=== PATIENT | female | born 1970 | race African-American/Black ===

== ENCOUNTER 2017-01-28 10:16 | Inpatient (IN) ==
[2017-01-28 11:11] LABS: Basophils % 0.3 % (0.0-0.8); Eosinophils # 0.1 10*3/uL (0.0-0.87); Eosinophils % 1.1 % (0.00-10.9); Hematocrit 32.8 VOL% (35.7-47.0); Hemoglobin 10.7 GM/DL (12.0-16.0); Immature Granulocytes % 0.5 %; Immature Granulocytes Absolute 0.06 #; Lymphocytes # 1.8 10*3/uL (1.4-4.0); Lymphocytes % 16.4 % (21.3-54.2); Mean Corpuscular HGB Conc 32.6 GM/DL (32-36); Mean Corpuscular Hemoglobin 28 PG (27-34); Mean Corpuscular Volume 85.6 FL (87-102); Mean Platelet Volume 11.3 FL (9.6-12.0); Monocytes # 0.7 10*3/uL (0.11-0.8); Monocytes % 6.3 % (1.7-12.7); Neutrophils # 8.4 10*3/uL (1.4-7.4); Neutrophils % 75.4 % (38.7-73.9); Platelet Count 233 T/CUMM (130-400); Red Blood Count 3.83 MC/CUMM (3.8-5.5); Red Cell Distribution Width 15.1 % (9.3-17.3); White Blood Count 11.2 T/CUMM (4-12)
[2017-01-28 11:33] LABS: Calcium 8.6 MG/DL (8.5-10.1); Osmolality,Calculated 274.1 MOS/KG (273-304); Potassium 3.8 MMOL/L (3.5-5.1)
[2017-01-28] MEDS ORDERED: BUPIVACAINE 0.25% 50 ML VIAL ONE (12:24)
[2017-01-28] MEDS ORDERED: PROPOFOL 200 MG/20 ML VIAL IV ONE (13:43)
[2017-01-28] MEDS ORDERED: KETAMINE 500 MG/10 ML VIAL ONE (13:44)
[2017-01-28] MEDS ORDERED: MIDAZOLAM 2 MG/2 ML VIAL ONE (13:44)
[2017-01-28] MEDS ORDERED: fentaNYL 100 MCG/2 ML VIAL ONE (13:44)
[2017-01-28] MEDS ORDERED: GLUCAGON 1 MG VIAL IM PRN (15:05)
[2017-01-28] MEDS ORDERED: ACETAMINOPHEN 325 MG TABLET PO PRN (15:05)
[2017-01-28] MEDS ORDERED: CLINDAMYCIN INJ 600 MG in PREMIX 1 EACH IV ONE (15:05)
[2017-01-28] MEDS ORDERED: DEXTROSE 50% 25 GM/50 ML VIAL IV PRN (15:05)
[2017-01-28 15:49] LABS: Apearance,Urine Slightly Hazy (Clear); Bilirubin,Urine Negative (Negative); Blood, Urine Large mg/dL (Negative); Glucose,Urine (UA) 50 mg/dL (Negative); Ketones,Urine Negative (Negative); Mucus,Urine Occasional /LPF (Occasional); Nitrite,Urine Negative (Negative); Protein,Urine Negative; RBC,Urine 4 /HPF (0-4); Squamous Epithelial Cell,Urine Occasional /HPF (0-10); Urine Color Yellow (Yellow); Urine Specific Gravity 1.006 (1.001-1.035); Urine Urobilinogen < 2.0 EU/DL (0.2-1.0); WBC,Urine 10 /HPF (0-6)
[2017-01-28] MEDS ORDERED: INFLUENZA VIRUS VACCINE 0.5 ML SYRINGE IM ONE (15:52)
[2017-01-28] MEDS: ALBUTEROL/IPRATROPIUM 3 ML NEB RESP TX SCH ×2 (16:30→19:53)
[2017-01-28] MEDS: ONDANSETRON 4 MG/2 ML VIAL IV PRN (17:45)
[2017-01-28] MEDS: MORPHINE 2 MG/1 ML SYRINGE IV PRN (17:45)
[2017-01-28] MEDS: INSULIN REGULAR 100 UNIT/ML SUBCUT SCH ×2 (17:45→20:12)
[2017-01-28] MEDS: INSULIN GLARGINE 100 UNIT/ML SUBCUT SCH (20:13)
[2017-01-28] MEDS: PANTOPRAZOLE 40 MG TABLET PO SCH (20:16)
[2017-01-28] MEDS: GABAPENTIN 300 MG CAPSULE PO SCH (20:16)
[2017-01-29] MEDS: CLINDAMYCIN INJ 600 MG in PREMIX 1 EACH IV SCH ×4 (00:23→23:12)
[2017-01-29] MEDS: ALBUTEROL/IPRATROPIUM 3 ML NEB RESP TX SCH ×4 (00:29→19:57)
[2017-01-29 06:21] LABS: Basophils % 0.3 % (0.0-0.8); Eosinophils # 0.2 10*3/uL (0.0-0.87); Eosinophils % 1.4 % (0.00-10.9); Hematocrit 30.2 VOL% (35.7-47.0); Hemoglobin 9.6 GM/DL (12.0-16.0); Immature Granulocytes % 0.5 %; Immature Granulocytes Absolute 0.05 #; Lymphocytes # 2.3 10*3/uL (1.4-4.0); Lymphocytes % 21.1 % (21.3-54.2); Mean Corpuscular HGB Conc 31.8 GM/DL (32-36); Mean Corpuscular Hemoglobin 27 PG (27-34); Mean Platelet Volume 11.4 FL (9.6-12.0); Monocytes # 0.8 10*3/uL (0.11-0.8); Monocytes % 7.5 % (1.7-12.7); Neutrophils # 7.5 10*3/uL (1.4-7.4); Neutrophils % 69.2 % (38.7-73.9); Platelet Count 237 T/CUMM (130-400); Red Blood Count 3.51 MC/CUMM (3.8-5.5); Red Cell Distribution Width 15.1 % (9.3-17.3); White Blood Count 10.9 T/CUMM (4-12)
[2017-01-29] MEDS: INSULIN REGULAR 100 UNIT/ML SUBCUT SCH ×4 (09:30→20:48)
[2017-01-29] MEDS: GABAPENTIN 300 MG CAPSULE PO SCH ×2 (09:31→20:47)
[2017-01-29] MEDS: LISINOPRIL/HCTZ 20-12.5 MG TABLET PO SCH (09:31)
[2017-01-29] MEDS: FERROUS SULFATE 325 MG TABLET PO SCH (09:31)
[2017-01-29] MEDS: VERAPAMIL SR 240 MG TABLET PO SCH (09:32)
[2017-01-29] MEDS: PANTOPRAZOLE 40 MG TABLET PO SCH ×2 (09:32→20:47)
[2017-01-29] MEDS: LIRAGLUTIDE 18 MG SUBCUT SCH (09:32)
[2017-01-29] MEDS: CIPROFLOXACIN INJ 400 MG in PREMIX 1 EACH IV SCH ×2 (09:33→20:46)
[2017-01-29] MEDS: MORPHINE 2 MG/1 ML SYRINGE IV PRN (09:54)
[2017-01-29] MEDS: SODIUM HYPOCHLORITE 0.25% IRRIG 473 ML BOTTLE TOP SCH (11:53)
[2017-01-29] MEDS: INSULIN GLARGINE 100 UNIT/ML SUBCUT SCH (20:48)
[2017-01-30] MEDS: ALBUTEROL/IPRATROPIUM 3 ML NEB RESP TX SCH ×4 (02:00→19:34)
[2017-01-30] MEDS: CLINDAMYCIN INJ 600 MG in PREMIX 1 EACH IV SCH ×3 (07:47→23:25)
[2017-01-30] MEDS: FERROUS SULFATE 325 MG TABLET PO SCH (09:06)
[2017-01-30] MEDS: LISINOPRIL/HCTZ 20-12.5 MG TABLET PO SCH (09:06)
[2017-01-30] MEDS: VERAPAMIL SR 240 MG TABLET PO SCH (09:06)
[2017-01-30] MEDS: PANTOPRAZOLE 40 MG TABLET PO SCH ×2 (09:07→20:22)
[2017-01-30] MEDS: GABAPENTIN 300 MG CAPSULE PO SCH ×2 (09:07→20:22)
[2017-01-30] MEDS: CIPROFLOXACIN INJ 400 MG in PREMIX 1 EACH IV SCH ×2 (09:08→20:22)
[2017-01-30] MEDS: INSULIN REGULAR 100 UNIT/ML SUBCUT SCH ×4 (09:09→20:23)
[2017-01-30] MEDS: LIRAGLUTIDE 18 MG SUBCUT SCH (09:16)
[2017-01-30] MEDS: SODIUM HYPOCHLORITE 0.25% IRRIG 473 ML BOTTLE TOP SCH (11:04)
[2017-01-30] MEDS: INSULIN GLARGINE 100 UNIT/ML SUBCUT SCH (20:23)
[2017-01-31] MEDS: ALBUTEROL/IPRATROPIUM 3 ML NEB RESP TX SCH ×4 (01:34→19:58)
[2017-01-31] MEDS: CLINDAMYCIN INJ 600 MG in PREMIX 1 EACH IV SCH ×3 (09:09→23:22)
[2017-01-31] MEDS: INSULIN REGULAR 100 UNIT/ML SUBCUT SCH ×4 (09:16→20:39)
[2017-01-31] MEDS: PANTOPRAZOLE 40 MG TABLET PO SCH ×2 (09:17→20:39)
[2017-01-31] MEDS: GABAPENTIN 300 MG CAPSULE PO SCH ×2 (09:17→20:39)
[2017-01-31] MEDS: LISINOPRIL/HCTZ 20-12.5 MG TABLET PO SCH (09:17)
[2017-01-31] MEDS: FERROUS SULFATE 325 MG TABLET PO SCH (09:17)
[2017-01-31] MEDS: VERAPAMIL SR 240 MG TABLET PO SCH (09:18)
[2017-01-31] MEDS: LIRAGLUTIDE 18 MG SUBCUT SCH (09:18)
[2017-01-31] MEDS: CIPROFLOXACIN INJ 400 MG in PREMIX 1 EACH IV SCH ×2 (10:05→20:40)
[2017-01-31] MEDS: MORPHINE 2 MG/1 ML SYRINGE IV PRN (10:11)
[2017-01-31] MEDS: ONDANSETRON 4 MG/2 ML VIAL IV PRN (10:15)
[2017-01-31] MEDS: SODIUM HYPOCHLORITE 0.25% IRRIG 473 ML BOTTLE TOP SCH (15:02)
[2017-01-31] MEDS: INSULIN GLARGINE 100 UNIT/ML SUBCUT SCH (20:39)
[2017-02-01] MEDS: ALBUTEROL/IPRATROPIUM 3 ML NEB RESP TX SCH ×4 (00:42→19:33)
[2017-02-01] MEDS: INSULIN REGULAR 100 UNIT/ML SUBCUT SCH ×4 (08:44→23:06)
[2017-02-01] MEDS: CLINDAMYCIN INJ 600 MG in PREMIX 1 EACH IV SCH ×2 (08:44→16:22)
[2017-02-01] MEDS: PANTOPRAZOLE 40 MG TABLET PO SCH ×2 (08:46→23:05)
[2017-02-01] MEDS: GABAPENTIN 300 MG CAPSULE PO SCH ×2 (08:46→23:05)
[2017-02-01] MEDS: FERROUS SULFATE 325 MG TABLET PO SCH (08:46)
[2017-02-01] MEDS: VERAPAMIL SR 240 MG TABLET PO SCH (08:47)
[2017-02-01] MEDS: LISINOPRIL/HCTZ 20-12.5 MG TABLET PO SCH ×2 (08:48→16:16)
[2017-02-01] MEDS: MORPHINE 2 MG/1 ML SYRINGE IV PRN (09:08)
[2017-02-01] MEDS: LIRAGLUTIDE 18 MG SUBCUT SCH (09:33)
[2017-02-01] MEDS: CIPROFLOXACIN INJ 400 MG in PREMIX 1 EACH IV SCH ×2 (09:33→23:11)
[2017-02-01] MEDS: SODIUM HYPOCHLORITE 0.25% IRRIG 473 ML BOTTLE TOP SCH (15:30)
[2017-02-01] MEDS: INSULIN GLARGINE 100 UNIT/ML SUBCUT SCH (23:05)
[2017-02-02] MEDS: ALBUTEROL/IPRATROPIUM 3 ML NEB RESP TX SCH ×4 (00:35→19:32)
[2017-02-02] MEDS: CLINDAMYCIN INJ 600 MG in PREMIX 1 EACH IV SCH ×4 (01:08→23:23)
[2017-02-02] MEDS: INSULIN REGULAR 100 UNIT/ML SUBCUT SCH ×4 (08:34→21:23)
[2017-02-02] MEDS: FERROUS SULFATE 325 MG TABLET PO SCH (08:37)
[2017-02-02] MEDS: LISINOPRIL/HCTZ 20-12.5 MG TABLET PO SCH (08:37)
[2017-02-02] MEDS: PANTOPRAZOLE 40 MG TABLET PO SCH ×2 (08:38→21:22)
[2017-02-02] MEDS: GABAPENTIN 300 MG CAPSULE PO SCH ×2 (08:38→21:22)
[2017-02-02] MEDS: VERAPAMIL SR 240 MG TABLET PO SCH (08:38)
[2017-02-02] MEDS: CIPROFLOXACIN INJ 400 MG in PREMIX 1 EACH IV SCH ×2 (09:09→21:20)
[2017-02-02] MEDS: LIRAGLUTIDE 18 MG SUBCUT SCH (09:14)
[2017-02-02] MEDS: SODIUM HYPOCHLORITE 0.25% IRRIG 473 ML BOTTLE TOP SCH (11:15)
[2017-02-02] MEDS: INSULIN GLARGINE 100 UNIT/ML SUBCUT SCH (21:23)
[2017-02-03] MEDS: ALBUTEROL/IPRATROPIUM 3 ML NEB RESP TX SCH ×3 (01:18→12:57)
[2017-02-03] MEDS: LISINOPRIL/HCTZ 20-12.5 MG TABLET PO SCH (08:18)
[2017-02-03] MEDS: VERAPAMIL SR 240 MG TABLET PO SCH (08:19)
[2017-02-03] MEDS: CLINDAMYCIN INJ 600 MG in PREMIX 1 EACH IV SCH (09:04)
[2017-02-03] MEDS: FERROUS SULFATE 325 MG TABLET PO SCH (09:04)
[2017-02-03] MEDS: INSULIN REGULAR 100 UNIT/ML SUBCUT SCH ×2 (09:04→11:23)
[2017-02-03] MEDS: LIRAGLUTIDE 18 MG SUBCUT SCH (09:05)
[2017-02-03] MEDS: GABAPENTIN 300 MG CAPSULE PO SCH (09:05)
[2017-02-03] MEDS: PANTOPRAZOLE 40 MG TABLET PO SCH (09:05)
[2017-02-03] MEDS: SODIUM HYPOCHLORITE 0.25% IRRIG 473 ML BOTTLE TOP SCH (09:57)
[2017-02-03] MEDS: CIPROFLOXACIN INJ 400 MG in PREMIX 1 EACH IV SCH (11:09)
[2017-02-03 11:37] VITALS: BP 107/65
== END 2017-02-03 13:41 | disposition swing bed (61) | DRG 638 ==
LOC: N.ED 10:16 → N.EDINP 12:33 → N.3E 13:38
PROVIDERS: ADMIT Surgery; ATTEND Surgery

== ENCOUNTER 2017-05-24 10:27 | Observation (INO) ==
[2017-05-24] MEDS ORDERED: METOPROLOL TARTRATE 5 MG/5 ML VIAL IV STA (11:02)
[2017-05-24] MEDS ORDERED: KETOROLAC 30 MG/1 ML VIAL IV STA (11:02)
[2017-05-24] MEDS ORDERED: ASPIRIN 325 MG TABLET PO STA (11:02)
[2017-05-24] MEDS ORDERED: METOPROLOL TARTRATE 5 MG/5 ML VIAL IV ONE (11:26)
[2017-05-24] MEDS ORDERED: ASPIRIN 325 MG TABLET ONE (11:26)
[2017-05-24] MEDS ORDERED: KETOROLAC 30 MG/1 ML VIAL ONE (11:26)
[2017-05-24 11:55] LABS: Basophils # 0.1 10*3/uL (0.0-0.2); Basophils % 1.2 % (0.0-0.8); Eosinophils # 0.2 10*3/uL (0.0-0.87); Eosinophils % 3.3 % (0.00-10.9); Hematocrit 37.8 VOL% (35.7-47.0); Hemoglobin 12.3 GM/DL (12.0-16.0); Immature Granulocytes % 0.5 %; Immature Granulocytes Absolute 0.03 #; Lymphocytes # 2.2 10*3/uL (1.4-4.0); Lymphocytes % 32.6 % (21.3-54.2); Mean Corpuscular HGB Conc 32.5 GM/DL (32-36); Mean Corpuscular Hemoglobin 28 PG (27-34); Mean Corpuscular Volume 84.6 FL (87-102); Mean Platelet Volume 11.5 FL (9.6-12.0); Monocytes # 0.4 10*3/uL (0.11-0.8); Neutrophils # 3.7 10*3/uL (1.4-7.4); Neutrophils % 56.4 % (38.7-73.9); Platelet Count 276 T/CUMM (130-400); Red Blood Count 4.47 MC/CUMM (3.8-5.5); Red Cell Distribution Width 14.6 % (9.3-17.3); White Blood Count 6.6 T/CUMM (4-12)
[2017-05-24 12:06] LABS: INR 0.9; PT Patient Result 9.8 SECS; Partial Thromboplastin Time 25.5 SECS (0-40)
[2017-05-24 12:25] LABS: Alanine Aminotransferase 15 U/L (13-56); Albumin 3.1 G/DL (3.4-5.0); Alkaline Phosphatase 115 U/L (45-117); Aspartate Amino Transferase 14 U/L (0-37); Bilirubin,Total < 0.39 MG/DL (0.2-1.0); Blood Urea Nitrogen 10 MG/DL (7-18); Calcium 8.6 MG/DL (8.5-10.1); Glucose 318 MG/DL (74-106); Osmolality,Calculated 285.7 MOS/KG (273-304); Potassium 4.6 MMOL/L (3.5-5.1); Sodium 138 MMOL/L (136-145); Total Protein 7.1 G/DL (6.4-8.3)
[2017-05-24 15:05] LABS: Apearance,Urine Slightly Hazy (Clear); Bacteria,Urine Occasional /HPF (Few); Bilirubin,Urine Negative (Negative); Blood, Urine Small mg/dL (Negative); Glucose,Urine (UA) >=500 mg/dL (Negative); Ketones,Urine Negative (Negative); Mucus,Urine Occasional /LPF (Occasional); Nitrite,Urine Positive (Negative); Protein,Urine Negative; RBC,Urine 3 /HPF (0-4); Squamous Epithelial Cell,Urine Few /HPF (0-10); Urine Color Yellow (Yellow); Urine Specific Gravity > 1.060 (1.001-1.035); Urine Urobilinogen < 2.0 EU/DL (0.2-1.0); WBC,Urine 17 /HPF (0-6)
[2017-05-24] MEDS ORDERED: cefTRIAXone 1,000 MG in SODIUM CHLORIDE 0.9% 100 ML IV STA (15:09)
[2017-05-24 15:11] LABS: Barbiturates Screen,Urine Negative (Negative); Benzodiazepines Screen,Urine Negative (Negative); Cannabinoid Screen,Urine Negative (Negative); Opiate Screen,Urine Negative (Negative); Phencyclidine Screen,Urine Negative (Negative)
[2017-05-24] MEDS ORDERED: MAGNESIUM HYDROXIDE SUSP 30 ML UDCUP PO PRN (15:26)
[2017-05-24] MEDS ORDERED: INSULIN REGULAR 100 UNIT/ML SUBCUT ONE (15:26)
[2017-05-24] MEDS ORDERED: POTASSIUM CHLORIDE 20 MEQ TABLET PO PRN ×2 (15:26)
[2017-05-24] MEDS ORDERED: ONDANSETRON 4 MG/2 ML VIAL IV PRN (15:26)
[2017-05-24] MEDS ORDERED: NITROGLYCERIN SL 0.4 MG TABLET SL PRN (15:26)
[2017-05-24] MEDS ORDERED: METHOCARBAMOL 750 MG TABLET PO PRN (15:27)
[2017-05-24] MEDS ORDERED: ALBUTEROL 2.5 MG/3 ML NEB RESP TX PRN (15:27)
[2017-05-24] MEDS ORDERED: ALBUTEROL SULFATE INH PRN (15:27)
[2017-05-24] MEDS ORDERED: SODIUM CHLORIDE 0.9% 100 ML IV ONE (15:31)
[2017-05-24] MEDS ORDERED: cefTRIAXone 1,000 MG VIAL ONE (15:31)
[2017-05-24 15:59] LABS: Risk Ratio 3.94
[2017-05-24] MEDS ORDERED: LEVOFLOXACIN INJ 500 MG in PREMIX 1 EACH IV SCH (18:00)
[2017-05-24] MEDS ORDERED: GLUCAGON 1 MG VIAL IM PRN (18:22)
[2017-05-24] MEDS ORDERED: DEXTROSE 50% 25 GM/50 ML VIAL IV PRN (18:22)
[2017-05-24] MEDS: METOCLOPRAMIDE 10 MG/10 ML UDCUP PO SCH ×2 (18:50→22:54)
[2017-05-24] MEDS: metFORMIN 500 MG TABLET PO SCH (18:50)
[2017-05-24] MEDS ORDERED: INFLUENZA VIRUS VACCINE 0.5 ML SYRINGE IM ONE (18:56)
[2017-05-24] MEDS ORDERED: ENOXAPARIN 40 MG/0.4 ML SYRINGE SUBCUT SCH (21:00)
[2017-05-24] MEDS ORDERED: INSULIN GLARGINE 100 UNIT/ML SUBCUT SCH (21:00)
[2017-05-24] MEDS: GABAPENTIN 300 MG CAPSULE PO SCH (22:53)
[2017-05-24] MEDS: NAPROXEN 500 MG TABLET PO SCH (22:54)
[2017-05-24] MEDS: PANTOPRAZOLE 40 MG TABLET PO SCH (23:02)
[2017-05-25] MEDS: INSULIN REGULAR 100 UNIT/ML SUBCUT SCH ×3 (03:13→12:22)
[2017-05-25] MEDS ORDERED: FERROUS SULFATE 325 MG TABLET PO SCH (09:00)
[2017-05-25] MEDS ORDERED: NON-FORMULARY MEDICATION (Liraglutide [Victoza 2-Pak] 1.8 MG) SUBCUT SCH (09:00)
[2017-05-25] MEDS ORDERED: VERAPAMIL SR 240 MG TABLET PO SCH (09:00)
[2017-05-25] MEDS ORDERED: LISINOPRIL/HCTZ 20-12.5 MG TABLET PO SCH (09:00)
[2017-05-25] MEDS ORDERED: ASPIRIN EC 81 MG TABLET PO SCH (09:00)
[2017-05-25] MEDS: METOCLOPRAMIDE 10 MG/10 ML UDCUP PO SCH ×2 (10:30→12:20)
[2017-05-25 11:48] VITALS: BP 133/80
[2017-05-25] MEDS: NAPROXEN 500 MG TABLET PO SCH (12:20)
[2017-05-25] MEDS: GABAPENTIN 300 MG CAPSULE PO SCH (12:20)
[2017-05-25] MEDS: PANTOPRAZOLE 40 MG TABLET PO SCH (12:21)
[2017-05-25] MEDS: metFORMIN 500 MG TABLET PO SCH (12:21)
[2017-05-31] MEDS ORDERED: ERGOCALCIFEROL 50,000 UNIT CAPSULE PO SCH (09:00)
== END 2017-05-25 12:56 | disposition home or self-care (01) ==
LOC: N.EDINP 10:27 → N.ED 10:27 → SUATTDRO 15:26 → N.TELEN 18:17
PROVIDERS: ADMIT Internal Medicine Infectious Disease; ATTEND Internal Medicine Cardiovascular Disease

== ENCOUNTER 2017-10-05 11:31 | Observation (INO) ==
[2017-10-05 12:31] LABS: Basophils # 0.1 10*3/uL (0.0-0.2); Basophils % 0.7 % (0.0-0.8); Eosinophils # 0.5 10*3/uL (0.0-0.87); Eosinophils % 6.7 % (0.00-10.9); Hemoglobin 11.9 GM/DL (12.0-16.0); Immature Granulocytes % 0.4 %; Immature Granulocytes Absolute 0.03 #; Lymphocytes # 2.9 10*3/uL (1.4-4.0); Lymphocytes % 40.4 % (21.3-54.2); Mean Corpuscular HGB Conc 32.2 GM/DL (32-36); Mean Corpuscular Hemoglobin 30 PG (27-34); Mean Corpuscular Volume 92.7 FL (87-102); Mean Platelet Volume 11.4 FL (9.6-12.0); Monocytes # 0.8 10*3/uL (0.11-0.8); Monocytes % 10.5 % (1.7-12.7); Neutrophils % 41.3 % (38.7-73.9); Platelet Count 234 T/CUMM (130-400); Red Blood Count 3.99 MC/CUMM (3.8-5.5); Red Cell Distribution Width 13.4 % (9.3-17.3); White Blood Count 7.2 T/CUMM (4-12)
[2017-10-05 13:36] LABS: Alanine Aminotransferase 18 U/L (13-56); Albumin 2.7 G/DL (3.4-5.0); Alkaline Phosphatase 111 U/L (45-117); Aspartate Amino Transferase 20 U/L (0-37); Bilirubin,Total < 0.39 MG/DL (0.2-1.0); Blood Urea Nitrogen 8 MG/DL (7-18); Calcium 8.3 MG/DL (8.5-10.1); Glucose 164 MG/DL (74-106); Osmolality,Calculated 282.3 MOS/KG (273-304); Potassium 4.6 MMOL/L (3.5-5.1); Sodium 141 MMOL/L (136-145); Total Protein 6.4 G/DL (6.4-8.3)
[2017-10-05 13:53] LABS: Barbiturates Screen,Urine Negative (Negative); Benzodiazepines Screen,Urine Negative (Negative); Cannabinoid Screen,Urine Negative (Negative); Opiate Screen,Urine Negative (Negative); Phencyclidine Screen,Urine Negative (Negative)
[2017-10-05] MEDS ORDERED: GLUCAGON 1 MG VIAL IM PRN (15:41)
[2017-10-05] MEDS ORDERED: DEXTROSE 50% 25 GM/50 ML VIAL IV PRN (15:41)
[2017-10-05] MEDS ORDERED: LABETALOL 20 MG/4 ML SYRINGE IV PRN (15:41)
[2017-10-05] MEDS ORDERED: ONDANSETRON 4 MG/2 ML VIAL IV PRN (15:46)
[2017-10-05] MEDS: ASPIRIN 325 MG TABLET PO SCH (17:48)
[2017-10-05] MEDS: GABAPENTIN 300 MG CAPSULE PO SCH (21:22)
[2017-10-05] MEDS: ATORVASTATIN 20 MG TABLET PO SCH (21:22)
[2017-10-05] MEDS: ENOXAPARIN 40 MG/0.4 ML SYRINGE SUBCUT SCH (21:22)
[2017-10-05] MEDS: INSULIN LISPRO 100 UNIT/ML SUBCUT SCH (21:24)
[2017-10-05] MEDS: SODIUM CHLORIDE 0.9% 1,000 ML IV SCH (22:22)
[2017-10-06] MEDS: SODIUM CHLORIDE 0.9% 1,000 ML IV SCH (02:26)
[2017-10-06 03:47] LABS: Basophils # 0.1 10*3/uL (0.0-0.2); Basophils % 0.7 % (0.0-0.8); Eosinophils # 0.5 10*3/uL (0.0-0.87); Eosinophils % 6.2 % (0.00-10.9); Hematocrit 33.2 VOL% (35.7-47.0); Hemoglobin 10.4 GM/DL (12.0-16.0); Immature Granulocytes % 0.3 %; Immature Granulocytes Absolute 0.02 #; Lymphocytes # 3.1 10*3/uL (1.4-4.0); Lymphocytes % 42.2 % (21.3-54.2); Mean Corpuscular HGB Conc 31.3 GM/DL (32-36); Mean Corpuscular Hemoglobin 29 PG (27-34); Mean Corpuscular Volume 92.7 FL (87-102); Mean Platelet Volume 12.3 FL (9.6-12.0); Monocytes # 0.6 10*3/uL (0.11-0.8); Monocytes % 7.7 % (1.7-12.7); Neutrophils # 3.1 10*3/uL (1.4-7.4); Neutrophils % 42.9 % (38.7-73.9); Platelet Count 205 T/CUMM (130-400); Red Blood Count 3.58 MC/CUMM (3.8-5.5); Red Cell Distribution Width 13.3 % (9.3-17.3); White Blood Count 7.3 T/CUMM (4-12)
[2017-10-06 04:22] LABS: Calcium 8.3 MG/DL (8.5-10.1); Osmolality,Calculated 280.7 MOS/KG (273-304); Potassium 3.7 MMOL/L (3.5-5.1); Risk Ratio 3.8; Thyroid Stimulating Hormone 1.4 uIU/ml (0.358-3.74)
[2017-10-06] MEDS ORDERED: LORazepam 2 MG/1 ML VIAL IV ONE (08:51)
[2017-10-06] MEDS: LISINOPRIL/HCTZ 20-12.5 MG TABLET PO SCH (09:44)
[2017-10-06] MEDS: VERAPAMIL SR 240 MG TABLET PO SCH (09:44)
[2017-10-06] MEDS: METHOCARBAMOL 750 MG TABLET PO SCH ×3 (09:45→21:29)
[2017-10-06] MEDS: ATORVASTATIN 20 MG TABLET PO SCH (09:45)
[2017-10-06] MEDS: GABAPENTIN 300 MG CAPSULE PO SCH ×2 (09:45→21:29)
[2017-10-06] MEDS: ASPIRIN 325 MG TABLET PO SCH (09:45)
[2017-10-06] MEDS: INSULIN LISPRO 100 UNIT/ML SUBCUT SCH ×4 (09:46→21:28)
[2017-10-06] MEDS: PANTOPRAZOLE 40 MG TABLET PO SCH (09:46)
[2017-10-06] MEDS: ENOXAPARIN 40 MG/0.4 ML SYRINGE SUBCUT SCH (21:29)
[2017-10-07 04:15] LABS: Basophils % 0.5 % (0.0-0.8); Eosinophils # 0.4 10*3/uL (0.0-0.87); Eosinophils % 6.5 % (0.00-10.9); Hematocrit 34.3 VOL% (35.7-47.0); Hemoglobin 10.6 GM/DL (12.0-16.0); Immature Granulocytes % 0.3 %; Immature Granulocytes Absolute 0.02 #; Lymphocytes # 2.4 10*3/uL (1.4-4.0); Lymphocytes % 38.3 % (21.3-54.2); Mean Corpuscular HGB Conc 30.9 GM/DL (32-36); Mean Corpuscular Hemoglobin 28 PG (27-34); Mean Corpuscular Volume 91.7 FL (87-102); Mean Platelet Volume 12.6 FL (9.6-12.0); Monocytes # 0.4 10*3/uL (0.11-0.8); Monocytes % 6.7 % (1.7-12.7); Neutrophils # 2.9 10*3/uL (1.4-7.4); Neutrophils % 47.7 % (38.7-73.9); Platelet Count 165 T/CUMM (130-400); Red Blood Count 3.74 MC/CUMM (3.8-5.5); Red Cell Distribution Width 13.2 % (9.3-17.3); White Blood Count 6.1 T/CUMM (4-12)
[2017-10-07 04:41] LABS: Platelet Estimate Normal
[2017-10-07 04:42] LABS: Calcium 7.8 MG/DL (8.5-10.1); Osmolality,Calculated 281.7 MOS/KG (273-304); Polychromasia Few; Potassium 4.1 MMOL/L (3.5-5.1)
[2017-10-07] MEDS: METHOCARBAMOL 750 MG TABLET PO SCH (08:03)
[2017-10-07] MEDS: VERAPAMIL SR 240 MG TABLET PO SCH (08:53)
[2017-10-07] MEDS: ATORVASTATIN 20 MG TABLET PO SCH (08:53)
[2017-10-07] MEDS: LISINOPRIL/HCTZ 20-12.5 MG TABLET PO SCH (08:53)
[2017-10-07] MEDS: PANTOPRAZOLE 40 MG TABLET PO SCH (08:53)
[2017-10-07] MEDS: ASPIRIN 325 MG TABLET PO SCH (08:53)
[2017-10-07] MEDS: GABAPENTIN 300 MG CAPSULE PO SCH (08:53)
[2017-10-07] MEDS: INSULIN LISPRO 100 UNIT/ML SUBCUT SCH (08:54)
[2017-10-07 12:21] VITALS: BP 113/62
== END 2017-10-07 12:55 | disposition home or self-care (01) ==
LOC: N.ED 11:31 → N.EDINP 11:31 → N.2W 16:59 → N.TELES 17:10
PROVIDERS: ADMIT Emergency Medicine; ATTEND Emergency Medicine